=== PATIENT | male | born 1940 | race African-American/Black ===

== ENCOUNTER 2018-10-21 10:32 | Outpatient (CLI) | payer MEDICARE ==
--- NOTE | 2018-10-21 11:38 | RAD ---
PA AND LATERAL CHEST: Date: 10/21/18 HISTORY: COPD with acute lower respiratory infection. Dyspnea x2 days. FINDINGS: The heart size is within normal limits. Lungs show some chronic appearing change. There is suggestion there may be some minimally increased parenchymal density in the right upper lobe on the PA film, al though not definitely confirmed on the lateral view. The possibility of some minimal or early infiltr ate is not excluded. Follow-up chest film may be helpful. IMPRESSION: 1. Mild chronic appearing lung change. 2. Questionable minimally increased parenchymal markings in the right upper lobe. Follow-up chest fi lm to evaluate for some early right upper lobe infiltrative change is suggested. POS: [facility]
== END 2018-10-21 10:33 | disposition home or self-care (01) ==
LOC: BICRAD 10:32
PROVIDERS: ATTEND Family Medicine
DX: J44.0 Chronic obstructive pulmonary disease with (acute) lower respiratory infection (principal)
CPT/HCPCS: 36415; 71046; 80053; 85025

== ENCOUNTER 2019-05-16 11:17 | Inpatient (IN) | payer MEDICARE ==
--- NOTE | 2019-05-16 12:36 | RAD ---
LEFT FOOT THREE VIEWS: 05/16/2019 HISTORY: Great toe infection. COMPARISON: None. FINDINGS: The bones appear demineralized. No radiopaque foreign body or subcutaneous gas. There is enthesophyte formation at the origin of the plantar aponeurosis and insertion of the Achilles tendon. There is mild dorsal degenerative change of the mid foot. There is mild degenerative change involving the first metatarsophalangeal joint. No acute fracture or evidence of dislocation. There is probable soft tissue swelling involving the great toe distally. IMPRESSION: 1. No acute fracture or dislocation. 2. Mild soft tissue swelling involving the great toe which may represent cellulitis. If there is conc nba for osteomyelitis MRI is suggested. POS: ABDELRAHMAN
[2019-05-16 12:55] LABS: #Basophils 0.1 thou/uL (0.0-0.2); #Eosinphils 0.3 thou/uL (0.0-0.7); #Lymphocytes 4.5 thou/uL (1.20-3.40); #Monocytes 0.9 thou/uL (0.11-0.59); %Basophils 1.3 % (0.0-1.0); %Eosinophils 2.4 % (0.0-10.0); %Lymphocytes 41.9 % (21.0-51.0); %Neutrophils 46.4 % (42.0-75.0); Hemoglobin 11.7 g/dL (14.0-18.0); Mean Corpuscular Hemoglobin 32.4 pg (27.0-31.0); Mean Corpuscular Volume 95.1 fL (78.0-98.0); Mean Platelet Volume 8.1 fL (7.4-10.4); Platelet Count 243 thou/uL (130-400); RBC Distribution Width 12.1 % (11.5-14.5); Red Blood Cell (RBC) Count 3.61 mill/uL (4.70-6.10); White Blood Cell (WBC) Count 10.7 thou/uL (4.8-10.8)
[2019-05-16 13:18] LABS: ALT (SGPT) 17 U/L (8-55); AST (SGOT) 19 U/L (5-34); Alkaline Phosphatase 95 U/L (40-110); Anion Gap 13 mmol/L (10-20); BUN (Urea Nitrogen) 24 mg/dL (8.4-25.7); Bilirubin, Total 0.2 mg/dL (0.2-1.2); Calc. Creatinine Clearance 0 mL/min (70-130); Carbon Dioxide 20 mmol/L (23-31); Chloride 108 mmol/L (98-107); Estimated GFR-MDRD 24; Globulin 4.3 g/dL (2.4-3.5); Glucose 104 mg/dL (83-110); Protein, Total 8.3 g/dL (5.8-8.1); Sodium 137 mmol/L (136-145)
--- NOTE | 2019-05-16 16:33 | CON ---
DATE OF CONSULTATION: REASON FOR CONSULTATION: Elevated creatinine. HISTORY OF PRESENT ILLNESS: This is an 79-year-old gentleman with a history of hypertension, CKD, and a baseline creatinine of 2.6 in September of 2018, which increased to 3.1. The patient has had decreased p.o. intake. Past creatinine had been 2.3 in the past. The patient has recently been treated for cellulitis of the big toe and was started on cephalexin. PAST MEDICAL HISTORY: COPD, hypertension, CKD, and glaucoma. SOCIAL HISTORY: No alcohol or drug use. FAMILY HISTORY: Negative for ESRD. ALLERGIES: REVIEWED. MEDICATIONS: Home medications list reviewed. Hospital medications list reviewed. REVIEW OF SYSTEMS: Fifteen-point review of system was performed and negative, except for positives noted above. GENERAL: HEAD: NECK: No swelling or lumps. NOSE: No epistaxis or discharge. EYES: No diplopia or pain. RESPIRATORY: CARDIOVASCULAR: GASTROINTESTINAL: /ENVIRONMENTAL RESOURCE SPECIALIST: MUSCULOSKELETAL: No joint pain. NEUROPSYCHIATRIC SYSTEMS: No suicidal ideation. No ideation. SKIN: Denies any rash or ulcer. CONSTITUTIONAL: No fever or chills. PHYSICAL EXAMINATION: CONSTITUTIONAL: On exam, the patient is awake and alert. VITAL SIGNS: Afebrile, pulse 75, breathing 16, and blood pressure 130/70. GENERAL APPEARANCE AND MENTAL STATUS: Fair. HEAD/NECK: Normocephalic. Atraumatic. EYES: EOMI. No deformity. EARS: Clear. No ulcers. NOSE: Intact. No lesions. MOUTH: Clear. No discharge. THROAT: Clear. No exudate. LUNGS: Clear. No crackles. CARDIAC: S1, S2. No rub. ABDOMEN: Benign. Bowel sounds positive. GENITALIA/RECTUM: Recio absent. BACK/EXTREMITIES: Edema 0+. NEUROLOGICAL: Alert and motor intact. SKIN: LYMPHATICS: ASSESSMENT AND PLAN: 1. Ariadna with CKD due to ATN 2 Anemia, stable. 3. HTN stable 4. Medications based on glomerular filtration rate are appropriate. No indication for dialysis at this time. Job ID: [id number] [facility]
[2019-05-16 18:01] LABS: Lactic Acid 2.3 mmol/L (0.5-2.2)
[2019-05-16] MEDS ORDERED: hydrALAZINE 20 MG/ML VIAL SLOW IVP PRN (19:51)
[2019-05-16] MEDS ORDERED: Ondansetron ODT 4 MG TAB PO PRN (19:51)
[2019-05-16] MEDS ORDERED: Ondansetron PF 4 MG/2 ML Vial IVP PRN (19:51)
[2019-05-16 19:59] VITALS: BMI 16.7
[2019-05-16] MEDS ORDERED: Vancomycin HCl 1 GM in Premix Bag 1 BAG IVPB SCH (21:00)
[2019-05-16] MEDS: Famotidine 20 MG TAB PO SCH (21:13)
[2019-05-16] MEDS: cefTRIAXone\\ROCEPHIN 2 GM in Sodium Chloride 0.9% 100 ML IVPB SCH (21:13)
[2019-05-16] MEDS: Sodium Chloride 0.9% 1,000 ML IV SCH (21:13)
--- NOTE | 2019-05-17 00:57 | HP ---
PRIMARY CARE PROVIDER: Reji Scott MD CHIEF COMPLAINT: Generalized weakness and left great toe wound. HISTORY OF PRESENT ILLNESS: This is an 79-year-old male, who presents to [facility] Emergency Department and after evaluation by his primary care doctor showing evidence of worsening renal function above baseline chronic kidney disease. The patient apparently was being treated for a left great toe infection with antibiotic therapy on his second round of antibiotics when he was noted with increasing creatinine above baseline to a current level of 3.10. Baseline creatinine upon review of the electronic medical record in the 2 to 2.5 range. The patient also with decreased activity level, as well as 40 pounds weight loss according to the in one month. No specific documented fever, chills, fall or direct injury to the foot. The patient normally ambulates with a rolling walker at home with assistance. No specific history of recent travel, family members with similar symptoms or documented fever. In the emergency room, the patient underwent general evaluation including plain radiographs of the left great toe showing evidence of edema and soft tissue swelling without obvious signs of osteomyelitis. Metabolic screening also showed a creatinine of 3.10 with estimated GFR of 24. The patient received intravenous normal saline in the emergency room and was referred to the Hospitalist Service for further evaluation. PAST MEDICAL HISTORY: 1. Tobacco abuse. 2. Anorexia with weight loss. 3. Hypertension. 4. Chronic obstructive pulmonary disease. 5. Depression. PAST SURGICAL HISTORY: Laser eye treatment for glaucoma. CURRENT MEDICATIONS: 1. Atenolol 50 mg p.o. b.i.d. 2. Doxazosin 4 mg p.o. b.i.d. 3. Loratadine 10 mg p.o. daily. 4. Megace 400 mg/10 mL p.o. b.i.d. 5. Mirtazapine 15 mg p.o. at bedtime. 6. [place] 7.5/325 mg one tablet p.o. q.6 hours p.r.n. pain. 7. Flonase 1 spray in each naris daily p.r.n. 8. Dorzolamide 2% one drop to each eye b.i.d. 9. Latanoprost 0.005% one drop to each eye daily. 10. Symbicort 2 puffs inhaled b.i.d. ALLERGIES: NO KNOWN DRUG ALLERGIES. FAMILY HISTORY: Positive for hypertension. SOCIAL HISTORY: . Resides in the [facility] area. Smokes up to one pack daily for over 25 years. No alcohol or illicit drug use. Ambulates with a rolling walker. REVIEW OF SYSTEMS: CONSTITUTIONAL: Negative for weight loss or gain, ability to conduct usual activities. SKIN: Negative for rash, itching. EYES: Negative for double vision, pain. ENT/MOUTH: Negative for nose bleeding, neck stiffness, pain, tenderness. CARDIOVASCULAR: Negative for palpitations, dyspnea on exertion, orthopnea. RESPIRATORY: Negative for shortness of breath, wheezing, cough, hemoptysis, fever or night sweats. GASTROINTESTINAL: Negative for poor appetite, abdominal pain, heartburn, nausea , vomiting, constipation, or diarrhea. GENITOURINARY: Negative for urgency, frequency, dysuria, nocturia. MUSCULOSKELETAL: Negative for pain, swelling. NEUROLOGIC/PSYCHIATRIC: Negative for anxiety, depression. ALLERGY/IMMUNOLOGIC: Negative for skin rash, bleeding tendency. Otherwise negative except as stated per HPI. PHYSICAL EXAMINATION: VITAL SIGNS: On admission, blood pressure 122/57, pulse 90, respiratory rate 18 , temperature 98 degrees Fahrenheit, O2 saturation 100% on room air. GENERAL APPEARANCE: This is an 79-year-old male, frail, cachectic, answers questions appropriately, in no acute distress. HEENT: Pupils are equal, round, reactive to light and accommodation. Extraocular muscles are intact. No scleral icterus. No conjunctival injection. Nares patent. OP is clear. Oral mucosa dry appearing. NECK: Supple. No cervical adenopathy. No thyromegaly. No carotid bruits. No JVD appreciated. Cervical spine with full active and passive range of motion. No meningeal signs noted. CHEST: Diminished breath sounds in the bases bilaterally otherwise clear. CARDIOVASCULAR EXAM: S1, S2 without noted murmur, rub, or gallop. ABDOMEN: Flat, soft, nontender, and nondistended. Bowel sounds are positive in all 4 quadrants. There is no hepatosplenomegaly. No abdominal bruits. No rebound or guarding appreciated. EXTREMITIES: Warm and dry with fair turgor. No clubbing, cyanosis, or asymmetric edema appreciated. Left great toe with mild edema and erythema. Ingrown toenail noted of the left great toe. Pulses are diminished bilaterally at the dorsalis pedis, posterior tibial, and popliteal arteries. Capillary refill less than 2 seconds. Generalized muscle atrophy noted. NEUROLOGIC: Cranial nerves 2 through 12 are grossly intact. No focal or lateralizing signs appreciated. Not observed ambulatory during this exam. PERTINENT LABORATORY AND X-RAY FINDINGS: Sodium 137, potassium 4.0, chloride 108, CO2 of 20, BUN 24, creatinine 3.10, estimated GFR of 24, glucose 104, lactic acid level ranged between 2.3 to 3.0, calcium 10.0, AST 19, ALT of 17, alkaline phosphatase 95, albumin 4.0. CBC showed a white blood cell count of 10.7, hemoglobin 12, hematocrit 34, and platelet count 243 with normal differential. 3-views of the left foot dated 05/16/2019, showed no acute fracture or dislocation. Soft tissue swelling noted concerning for cellulitis. ASSESSMENT AND PLAN: 1. Acute kidney injury on chronic kidney disease stage 3. Admit to the medical floor. Avoid nephrotoxic agents and limit contrast exposure. Continue intravenous normal saline and monitor serial creatinine. Renal ultrasound pending. Consult Nephrology Service for further evaluation. Suspect multifactorial process including poor oral intake, dehydration and iatrogenic influence. 2. Lactic acidosis. Suspect secondary to acute kidney injury and #1. Continue IV fluids as outlined previously. Serial monitoring. Suspect component of the left great toe cellulitis. 3. Left great toe cellulitis. Continue vancomycin 1 g IV x1 now with additional Rocephin 2 g IV q.24 hours. Wound care consult for evaluation and monitoring. 4. Failure to thrive. Suspect multifactorial given the patient's advanced age and decreased oral intake. We will consult Dietary Services for evaluation. Consider Megace. Monitor oral intake. 5. Tobacco abuse. We will offer smoking cessation resource prior to discharge. 6. Hypertension. Resume home antihypertensive regimen and monitor clinical response. 7. Prophylaxis. SCDs while in bed. Pepcid 20 mg p.o. b.i.d. PT and OT evaluation for functional assessment. Case management consult for nursing home facility options. 8. Code status full. Surrogate medical decision maker is the patient's spouse. Job ID: [id number] MTDD
[2019-05-17 07:58] LABS: Hemoglobin 11.3 g/dL (14.0-18.0); Mean Corpuscular HGB CONC 33.2 g/dL (32.0-36.0); Mean Corpuscular Hemoglobin 32.3 pg (27.0-31.0); Mean Corpuscular Volume 97.4 fL (78.0-98.0); Mean Platelet Volume 7.9 fL (7.4-10.4); Platelet Count 238 thou/uL (130-400); RBC Distribution Width 12.2 % (11.5-14.5); Red Blood Cell (RBC) Count 3.48 mill/uL (4.70-6.10); White Blood Cell (WBC) Count 12.4 thou/uL (4.8-10.8)
--- NOTE | 2019-05-17 07:58 | ULT ---
US Renal Bilateral STANDARD: 05/16/2019 1:49 PM CLINICAL HISTORY: Renal failure. STUDY: Renal ultrasound COMPARISON: None. FINDINGS: Right kidney: Echogenicity: Normal. Masses/cysts: None. Hydronephrosis: None. Calcifications: None. Length: 7.5 cm Left kidney: Echogenicity: Normal. Masses/cysts: None. Hydronephrosis: None. Calcifications: None. Length: 7.4 cm Limited visualization of the urinary bladder is unremarkable. IMPRESSION: Unremarkable renal ultrasound
[2019-05-17] MEDS ORDERED: HYDROcodone/Acetaminophen 7.5/325 mg Tablet PO PRN ×2 (08:14→08:49)
[2019-05-17] MEDS ORDERED: Fluticasone Propionate Nasal Spray 16 gm Bottle NASAL PRN ×2 (08:14→08:48)
[2019-05-17 08:20] LABS: Phosphorus 2.6 mg/dL (2.3-4.7)
[2019-05-17 08:21] LABS: Anion Gap 11 mmol/L (10-20); Anion Gap 13 mmol/L (10-20); BUN (Urea Nitrogen) 22 mg/dL (8.4-25.7); Calc. Creatinine Clearance 14 mL/min (70-130); Calc. Creatinine Clearance 15 mL/min (70-130); Calcium 9.2 mg/dL (7.8-10.44); Carbon Dioxide 19 mmol/L (23-31); Carbon Dioxide 20 mmol/L (23-31); Chloride 110 mmol/L (98-107); Chloride 111 mmol/L (98-107); Estimated GFR-MDRD 29; Estimated GFR-MDRD 31; Glucose 86 mg/dL (83-110); Glucose 88 mg/dL (83-110); Magnesium 1.9 mg/dL (1.6-2.6); Potassium 4.1 mmol/L (3.5-5.1); Sodium 137 mmol/L (136-145); Sodium 139 mmol/L (136-145); Uric Acid 6.9 mg/dL (3.5-7.2)
[2019-05-17 08:22] LABS: #Basophils 0.1 thou/uL (0.0-0.2); #Eosinphils 0.3 thou/uL (0.0-0.7); #Lymphocytes 5.9 thou/uL (1.20-3.40); #Neutrophils 5.1 thou/uL (1.40-6.50); %Basophils 0.8 % (0.0-1.0); %Eosinophils 2.8 % (0.0-10.0); %Lymphocytes 47.4 % (21.0-51.0); %Monocytes 8.1 % (0.0-10.0); %Neutrophils 40.9 % (42.0-75.0); RBC Morphology Normal
--- NOTE | 2019-05-17 08:36 | PRG ---
DATE OF SERVICE: 05/17/2019 SUBJECTIVE: An 79-year-old gentleman being seen for acute kidney injury. The patient denied nausea, vomiting, or chest pain. OBJECTIVE: See above. The patient is awake and alert, in no acute distress. VITAL SIGNS: Pulse 74, breathing 16, blood pressure 169/67. GENERAL APPEARANCE AND MENTAL STATUS: Fair. HEAD/NECK: Normocephalic. Atraumatic. EYES: EOMI. No deformity. EARS: Clear. No ulcers. NOSE: Intact. No lesions. MOUTH: Clear. No discharge. THROAT: Clear. No exudate. LUNGS: Clear. No crackles. CARDIAC: S1, S2. No rub. ABDOMEN: Benign. Bowel sounds positive. GENITALIA/RECTUM: Recio absent. BACK/EXTREMITIES: Edema 0+. NEUROLOGICAL: Alert and motor intact. SKIN: LYMPHATICS: LABORATORY DATA: Reviewed. ASSESSMENT AND PLAN: 1. Chronic kidney disease stage 4 with acute kidney injury. Recheck labs. 2. Hypertension, stable. 3. Anemia, stable. Medication based on GFR appropriate. Job ID: [id number]
[2019-05-17] MEDS ORDERED: FLU VACC TS2019-20(65YR UP)/PF 180 MCG/0.5 ML SYRINGE IM ONE (09:00)
[2019-05-17] MEDS ORDERED: Atenolol 25 MG TAB PO SCH (09:00)
--- NOTE | 2019-05-17 09:03 | CON ---
DATE OF CONSULTATION: REASON FOR CONSULTATION: Nonhealing ulcer. HISTORY OF PRESENT ILLNESS: Mr. Mora is an 79-year-old gentleman, who I have seen and evaluated in the past. He recently presented with failure to thrive, increased chills in addition to a nonhealing ulcer to his toe. He was evaluated in the office last week. He did have an ultrasound performed earlier in the week and was found to have severe diffuse disease present of the SFA. His creatinine was also noted to be 3.0 with a creatinine clearance of 12. He has been subsequently admitted for further recommendations. PAST MEDICAL HISTORY: PVD, hypertension, COPD, peripheral neuropathy, continued tobacco abuse, anorexia, BPH, carotid bruit, glaucoma. HOME MEDICATIONS: Include, 1. Megestrol. 2. Atenolol. 3. Mirtazapine. 4. Doxazosin. 5. Tramadol. 6. Symbicort. 7. Flonase. 8. Timolol. 9. [place]. 10. Aspirin. 11. Loratadine. 12. Iron. PAST SURGICAL HISTORY: Ingrown toenail removal. FAMILY HISTORY: Negative for CAD. SOCIAL HISTORY: Positive for tobacco use. ALLERGIES: NONE. REVIEW OF SYSTEMS: Ten-point review of systems was reviewed as above, otherwise negative. PHYSICAL EXAMINATION: GENERAL: Patient is a pleasant male, who is in no acute distress. The patient appears their stated age. VITAL SIGNS: Blood pressure 116/67, pulse 74 temperature 98.4. NEUROLOGIC: The patient is alert and oriented x3 with no focal neurologic deficits. HEENT: Sclerae without icterus. Mouth has moist mucous membranes with normal pallor. NECK: No JVD. Carotid upstroke brisk. No bruits bilaterally. LUNGS: Clear to auscultation with unlabored respirations. BACK: No scoliosis or kyphosis. CARDIAC: Regular rate and rhythm with normal S1 and S2. No S3 or S4 noted. No significant rubs, murmurs, thrills, or gallops noted throughout the precordium. PMI is not displaced. There is no parasternal heave. ABDOMEN: Soft, nontender, nondistended. No peritoneal signs present. No hepatosplenomegaly. No abnormal striae. EXTREMITIES: Nonpalpable popliteal pulses bilaterally. Nonpalpable dorsalis pedis. posterior tibial pulses noted bilaterally. Left great toe appears cyanotic. Decreased capillary refill present. SKIN: No gross abnormalities. PERTINENT LABORATORY DATA: Hemoglobin 13.3. Followup creatinine of 2.59 with a creatinine clearance of 14. IMPRESSION: 1. Nonhealing ulcer. 2. Failure to thrive. 3. Chronic kidney disease. RECOMMENDATIONS: At this point, I did speak with Dr. Fontana about this complex case. Mr. Mora, with such a low creatinine clearance, is at high risk of needing a dialysis if angiography performed. He appeared to have severe disease present within the left SFA and popliteal region. Difficult to assess the infrapopliteal region due to a poor flow present. He likely has a long lesion present requiring significant amount of contrast potentially. I did call and left a message with Álvaro, his daughter to discuss the risks proceeding. Other option would be to continue with medical therapy and proceed with amputation if it did not heal. At this point, there are no good options. Again, we will discuss with family and discuss with Dr. Fontana further. Job ID: [id number]
[2019-05-17] MEDS: Megestrol Acetate 800 MG/20 ML UDCUP PO SCH ×2 (10:09→16:27)
[2019-05-17] MEDS: Atenolol 50 MG TAB PO SCH ×2 (10:11→20:02)
[2019-05-17] MEDS: DorzolamidE/Timolol 2%/0.5% Ophth Soln 10 ml Bottle EA EYE SCH ×2 (10:13→20:03)
[2019-05-17] MEDS: Doxazosin Mesylate 4 MG TAB PO SCH ×2 (10:32→20:02)
--- NOTE | 2019-05-17 14:07 | PDOC.HOSPP ---
- Subjective Encounter Date: 05/17/19 Encounter Time: 11:00 Subjective: Patient seen and examined. No new complaints. No overnight events - Objective Vital Signs & Weight: Vital Signs (12 hours) Temp Pulse Resp BP BP Pulse Ox 05/17/19 11:00 98.8 F 62 16 176/67 H 100 05/17/19 10:11 74 169/79 H 05/17/19 07:42 98.4 F 74 20 169/67 H 95 05/17/19 04:00 98.3 F 73 18 136/56 L 96 Weight Weight 97 lb 1.6 oz I&O: 05/16/19 05/17/19 05/18/19 06:59 06:59 06:59 Intake Total 846 Balance 846 Result Diagrams: 05/17/19 07:28 05/17/19 07:28 Hospitalist ROS - Review of Systems Constitutional: reports: weakness, malaise. denies: fever, chills, sweats, other ENT: denies: ear pain, ear discharge, nose pain, nose discharge, nose congestion , mouth pain, mouth swelling, throat pain, throat swelling, other Respiratory: denies: cough, dry, shortness of breath, hemoptysis, SOB with excertion, pleuritic pain, sputum, wheezing, other Gastrointestinal: denies: nausea, vomiting, abdominal pain, diarrhea, constipation, melena, hematochezia, other Genitourinary: denies: dysuria, frequency, incontinence, hematuria, retention, other Musculoskeletal: reports: foot pain. denies: neck pain, shoulder pain, arm pain , back pain, hand pain, leg pain, other Skin: denies: rash, lesions, bal, bruising, other - Medication Medications: Active Medications Generic Name Dose Route Start Last Admin Trade Name Freq PRN Reason Stop Dose Admin Atenolol 50 mg 05/17/19 09:00 05/17/19 10:11 Tenormin PO 50 mg BID RAMON Administration Dorzolamide/Timolol 1 drop 05/17/19 09:00 05/17/19 10:13 Cosopt 2-0.5% Ophth Soln EA EYE 1 drop BID RAMON Administration Doxazosin Mesylate 4 mg 05/17/19 09:00 05/17/19 10:32 Cardura PO 4 mg BID RAMON Administration Famotidine 20 mg 05/16/19 21:00 05/16/19 21:13 Pepcid PO 20 mg QPM RAMON Administration Sodium Chloride 1,000 mls @ 30 mls/hr 05/16/19 16:30 05/16/19 21:13 Normal Saline 0.9% IV 1,000 mls .Q24H RAMON Administration Ceftriaxone Sodium 2 gm/ 100 mls @ 200 mls/hr 05/16/19 20:00 05/16/19 21:13 Sodium Chloride IVPB 100 mls Q24HR RAMON Administration Megestrol Acetate 400 mg 05/17/19 08:00 05/17/19 10:09 Megace PO 400 mg BID-WM RAMON Administration Sodium Chloride 10 ml 05/16/19 21:00 05/17/19 10:34 Flush - Normal Saline IVF 10 ml Q12HR RAMON Administration - Exam General Appearance: NAD, ill appearing Eye: PERRL, anicteric sclera ENT: normocephalic atraumatic, no oropharyngeal lesions Neck: supple, symmetric, no JVD, no thyromegaly Heart: RRR, no murmur, no gallops, no rubs Respiratory: CTAB, no wheezes, no rales, no ronchi Gastrointestinal: soft, non-tender, non-distended, normal bowel sounds Extremities: no cyanosis, no clubbing Extremities - other findings: left great toe gangrene, muscle atrophy, no palpable pulse Skin: normal turgor, no lesions Neurological: cranial nerve grossly intact, no focal deficits Musculoskeletal: normal tone, normal strength Psychiatric: normal affect, normal behavior Hosp A/P (1) Lactic acidosis Code(s): E87.2 - ACIDOSIS Status: Acute (2) Acute worsening of stage 3 chronic kidney disease Code(s): N18.3 - CHRONIC KIDNEY DISEASE, STAGE 3 (MODERATE) Status: Acute (3) Gangrene of toe of left foot Code(s): I96 - GANGRENE, NOT ELSEWHERE CLASSIFIED Status: Acute (4) PAD (peripheral artery disease) Code(s): I73.9 - PERIPHERAL VASCULAR DISEASE, UNSPECIFIED Status: Chronic (5) Protein-calorie malnutrition, severe Code(s): E43 - UNSPECIFIED SEVERE PROTEIN-CALORIE MALNUTRITION Status: Chronic (6) Tobacco abuse Code(s): Z72.0 - TOBACCO USE Status: Chronic (7) Hypertension Code(s): I10 - ESSENTIAL (PRIMARY) HYPERTENSION Status: Acute Qualifiers: Hypertension type: essential hypertension Qualified Code(s): I10 - Essential (primary) hypertension (8) Anemia, normocytic normochromic Code(s): D64.9 - ANEMIA, UNSPECIFIED Status: Chronic - Plan old records reviewed/req, plan discussed w/ family, continue antibiotics 05/17/19 continue empiric antibiotics as ordered for now he can not have CTA to evaluate his PAD due to BRITTNEY continue IVF nephrology following level of amputation is difficult to decide as unable to do angiography, high risk for non healing due to poor nutrition as well prognosis guarded discussed with family bedside will repeat lab tomorrow
--- NOTE | 2019-05-17 15:13 | CON ---
DATE OF CONSULTATION: I spoke to Mr. Mora today and Ms. Rea, his daughter. I discussed the risks and benefits of proceeding with angiography versus continue medical therapy. With continue medical therapy risk being unsuccessful with need for amputation. With proceeding with angiography, the risk of failed intervention, amputation, and dialysis. Of course, there is the benefit of a successful procedure with limited contrast, although less likely given the findings on the arterial duplex. He was opted to therefore to proceed with just continue antibiotic therapy and not proceed with angiography. I would certainly agree with this direction. Otherwise, from a vascular standpoint, I have no further recommendations. If he has fever or continues to have progressive infection, would likely benefit from amputation. Please re-consult if needed. Job ID: [id number]
[2019-05-17] MEDS: Sodium Chloride 0.9% 1,000 ML IV SCH ×2 (16:27→19:59)
[2019-05-17] MEDS ORDERED: MEGESTROL ACETATE PO SCH (17:00)
[2019-05-17] MEDS: cefTRIAXone\\ROCEPHIN 2 GM in Sodium Chloride 0.9% 100 ML IVPB SCH (20:00)
[2019-05-17] MEDS: Mirtazapine 15 MG TAB PO SCH (20:02)
[2019-05-17] MEDS: Famotidine 20 MG TAB PO SCH (20:02)
[2019-05-17] MEDS: Latanoprost 0.005% Ophth Soln 2.5 ml Bottle EA EYE SCH (20:03)
[2019-05-18 08:14] LABS: #Basophils 0.1 thou/uL (0.0-0.2); #Eosinphils 0.2 thou/uL (0.0-0.7); #Lymphocytes 3.9 thou/uL (1.20-3.40); #Monocytes 0.7 thou/uL (0.11-0.59); #Neutrophils 5.4 thou/uL (1.40-6.50); %Basophils 0.8 % (0.0-1.0); %Eosinophils 2.1 % (0.0-10.0); %Lymphocytes 38.2 % (21.0-51.0); %Monocytes 6.3 % (0.0-10.0); %Neutrophils 52.7 % (42.0-75.0); Hemoglobin 10.2 g/dL (14.0-18.0); Mean Corpuscular HGB CONC 33.5 g/dL (32.0-36.0); Mean Corpuscular Hemoglobin 31.8 pg (27.0-31.0); Mean Platelet Volume 8.1 fL (7.4-10.4); Platelet Count 219 thou/uL (130-400); RBC Distribution Width 12.1 % (11.5-14.5); Red Blood Cell (RBC) Count 3.21 mill/uL (4.70-6.10); White Blood Cell (WBC) Count 10.3 thou/uL (4.8-10.8)
[2019-05-18] MEDS: Megestrol Acetate 800 MG/20 ML UDCUP PO SCH ×2 (08:28→16:31)
[2019-05-18] MEDS: Atenolol 50 MG TAB PO SCH ×2 (08:28→20:25)
[2019-05-18] MEDS: Doxazosin Mesylate 4 MG TAB PO SCH ×2 (08:28→20:25)
[2019-05-18] MEDS: DorzolamidE/Timolol 2%/0.5% Ophth Soln 10 ml Bottle EA EYE SCH ×2 (08:29→20:24)
[2019-05-18 08:31] LABS: Lactic Acid 2.1 mmol/L (0.5-2.2)
[2019-05-18 08:37] LABS: ALT (SGPT) 10 U/L (8-55); AST (SGOT) 13 U/L (5-34); Albumin 3.1 g/dL (3.4-4.8); Alkaline Phosphatase 71 U/L (40-110); Anion Gap 9 mmol/L (10-20); BUN (Urea Nitrogen) 20 mg/dL (8.4-25.7); Bilirubin, Total 0.3 mg/dL (0.2-1.2); Calc. Creatinine Clearance 17 mL/min (70-130); Calcium 8.8 mg/dL (7.8-10.44); Carbon Dioxide 21 mmol/L (23-31); Chloride 112 mmol/L (98-107); Estimated GFR-MDRD 35; Globulin 3.4 g/dL (2.4-3.5); Glucose 90 mg/dL (83-110); Phosphorus 3.1 mg/dL (2.3-4.7); Potassium 4.3 mmol/L (3.5-5.1); Protein, Total 6.5 g/dL (5.8-8.1); Sodium 138 mmol/L (136-145)
--- NOTE | 2019-05-18 10:49 | PDOC.HOSPP ---
- Subjective Encounter Date: 05/18/19 Encounter Time: 09:45 Subjective: Patient seen and examined. No new complaints. No overnight events - Objective Vital Signs & Weight: Vital Signs (12 hours) Temp Pulse Resp BP BP Pulse Ox 05/18/19 08:28 74 161/75 H 05/18/19 07:41 99.3 F 74 16 161/75 H 99 Weight Admit Weight 97 lb 1.6 oz Weight 97 lb 1.6 oz I&O: 05/17/19 05/18/19 05/19/19 06:59 06:59 06:59 Intake Total 846 2052 Output Total 775 Balance 846 7597 Result Diagrams: 05/18/19 07:58 05/18/19 07:58 Hospitalist ROS - Review of Systems Constitutional: denies: fever, chills, sweats, weakness, malaise, other Eyes: denies: pain, vision change, conjunctivae inflammation, eyelid inflammation, redness, other ENT: denies: ear pain, ear discharge, nose pain, nose discharge, nose congestion , mouth pain, mouth swelling, throat pain, throat swelling, other Respiratory: denies: cough, dry, shortness of breath, hemoptysis, SOB with excertion, pleuritic pain, sputum, wheezing, other Cardiovascular: denies: chest pain, palpitations, orthopnea, paroxysmal noc. dyspnea, edema, light headedness, other Gastrointestinal: denies: nausea, vomiting, abdominal pain, diarrhea, constipation, melena, hematochezia, other Genitourinary: denies: dysuria, frequency, incontinence, hematuria, retention, other Musculoskeletal: denies: neck pain, shoulder pain, arm pain, back pain, hand pain, leg pain, foot pain, other - Medication Medications: Active Medications Generic Name Dose Route Start Last Admin Trade Name Freq PRN Reason Stop Dose Admin Atenolol 50 mg 05/17/19 09:00 05/18/19 08:28 Tenormin PO 50 mg BID RAMON Administration Dorzolamide/Timolol 1 drop 05/17/19 09:00 05/18/19 08:29 Cosopt 2-0.5% Ophth Soln EA EYE 1 drop BID RAMON Administration Doxazosin Mesylate 4 mg 05/17/19 09:00 05/18/19 08:28 Cardura PO 4 mg BID RAMON Administration Famotidine 20 mg 05/16/19 21:00 05/17/19 20:02 Pepcid PO 20 mg QPM RAMON Administration Sodium Chloride 1,000 mls @ 30 mls/hr 05/16/19 16:30 05/17/19 19:59 Normal Saline 0.9% IV 1,000 mls .Q24H RAMON Administration Ceftriaxone Sodium 2 gm/ 100 mls @ 200 mls/hr 05/16/19 20:00 05/17/19 20:00 Sodium Chloride IVPB 100 mls Q24HR RAMON Administration Latanoprost 1 drop 05/17/19 21:00 05/17/19 20:03 Xalatan 0.005% Ophth Soln EA EYE 1 drop HS RAMON Administration Megestrol Acetate 400 mg 05/17/19 08:00 05/18/19 08:28 Megace PO 400 mg BID-WM RAMON Administration Mirtazapine 15 mg 05/17/19 21:00 05/17/19 20:02 Remeron PO 15 mg HS RAMON Administration Sodium Chloride 10 ml 05/16/19 21:00 05/18/19 08:29 Flush - Normal Saline IVF 10 ml Q12HR RAMON Administration - Exam General Appearance: NAD, ill appearing Eye: PERRL, anicteric sclera ENT: normocephalic atraumatic, no oropharyngeal lesions Neck: supple, symmetric, no JVD, no thyromegaly Heart: RRR, no murmur, no gallops, no rubs Respiratory: CTAB, no wheezes, no rales, no ronchi Gastrointestinal: soft, non-tender, non-distended, normal bowel sounds Extremities: no cyanosis, no clubbing Extremities - other findings: left great toe gangrene Skin: normal turgor, no lesions, no rashes Neurological: no focal deficits Musculoskeletal: normal tone, normal strength, generalized weakness, diffuse muscle atrophy Psychiatric: normal affect, normal behavior, A&O x 3 Hosp A/P (1) Lactic acidosis Code(s): E87.2 - ACIDOSIS Status: Resolved (2) Acute worsening of stage 3 chronic kidney disease Code(s): N18.3 - CHRONIC KIDNEY DISEASE, STAGE 3 (MODERATE) Status: Acute (3) Gangrene of toe of left foot Code(s): I96 - GANGRENE, NOT ELSEWHERE CLASSIFIED Status: Acute (4) PAD (peripheral artery disease) Code(s): I73.9 - PERIPHERAL VASCULAR DISEASE, UNSPECIFIED Status: Chronic (5) Protein-calorie malnutrition, severe Code(s): E43 - UNSPECIFIED SEVERE PROTEIN-CALORIE MALNUTRITION Status: Chronic (6) Tobacco abuse Code(s): Z72.0 - TOBACCO USE Status: Chronic (7) Hypertension Code(s): I10 - ESSENTIAL (PRIMARY) HYPERTENSION Status: Acute Qualifiers: Hypertension type: essential hypertension Qualified Code(s): I10 - Essential (primary) hypertension (8) Anemia, normocytic normochromic Code(s): D64.9 - ANEMIA, UNSPECIFIED Status: Chronic - Plan old records reviewed/req, continue antibiotics 05/17/19 continue empiric antibiotics as ordered for now he can not have CTA to evaluate his PAD due to BRITTNEY continue IVF nephrology following level of amputation is difficult to decide as unable to do angiography, high risk for non healing due to poor nutrition as well prognosis guarded discussed with family bedside will repeat lab tomorrow 05/18/19 continue iv antibiotic for now renal function is little better continue ivf pt is not a candidate for angiography will monitor counselled to avoid smoking nutritional support
--- NOTE | 2019-05-18 11:39 | PRG ---
DATE OF SERVICE: 05/18/2019 SUBJECTIVE: The patient is an 79-year-old gentleman, being seen for acute kidney injury. The patient denied nausea, vomiting, or chest pain. OBJECTIVE: See above. Awake, alert, in no acute distress. VITAL SIGNS: Pulse 77, breathing 16, blood pressure 138/79. GENERAL APPEARANCE AND MENTAL STATUS: Fair. HEAD/NECK: Normocephalic. Atraumatic. EYES: EOMI. No deformity. EARS: Clear. No ulcers. NOSE: Intact. No lesions. MOUTH: Clear. No discharge. THROAT: Clear. No exudate. LUNGS: Clear. No crackles. CARDIAC: S1, S2. No rub. ABDOMEN: Benign. Bowel sounds positive. GENITALIA/RECTUM: Recio absent. BACK/EXTREMITIES: Edema 0+. NEUROLOGICAL: Alert and motor intact. SKIN: LYMPHATICS: LABORATORY DATA: Hemoglobin 10.2. Creatinine 2.1. ASSESSMENT AND PLAN: 1. Acute kidney injury, improved. 2. Hypertension, stable. 3. Anemia, stable. 4. Chronic kidney disease stage 3, stable. 5. Acute tubular necrosis, improved. No indication for dialysis. Job ID: [id number]
[2019-05-18] MEDS: Famotidine 20 MG TAB PO SCH (20:24)
[2019-05-18] MEDS: Latanoprost 0.005% Ophth Soln 2.5 ml Bottle EA EYE SCH (20:25)
[2019-05-18] MEDS: Mirtazapine 15 MG TAB PO SCH (20:25)
[2019-05-18] MEDS: cefTRIAXone\\ROCEPHIN 2 GM in Sodium Chloride 0.9% 100 ML IVPB SCH (20:25)
[2019-05-19] MEDS: Megestrol Acetate 800 MG/20 ML UDCUP PO SCH ×2 (08:29→18:18)
[2019-05-19] MEDS: Atenolol 50 MG TAB PO SCH ×2 (08:30→20:28)
[2019-05-19] MEDS: DorzolamidE/Timolol 2%/0.5% Ophth Soln 10 ml Bottle EA EYE SCH ×2 (08:31→20:27)
[2019-05-19] MEDS: Doxazosin Mesylate 4 MG TAB PO SCH ×2 (08:31→20:28)
[2019-05-19] MEDS: Sodium Chloride 0.9% 1,000 ML IV SCH (08:33)
[2019-05-19 10:59] LABS: Anion Gap 12 mmol/L (10-20); BUN (Urea Nitrogen) 24 mg/dL (8.4-25.7); Calc. Creatinine Clearance 15 mL/min (70-130); Carbon Dioxide 17 mmol/L (23-31); Chloride 113 mmol/L (98-107); Estimated GFR-MDRD 32; Glucose 68 mg/dL (83-110); Potassium 4.4 mmol/L (3.5-5.1); Sodium 138 mmol/L (136-145)
--- NOTE | 2019-05-19 11:53 | PDOC.HOSPP ---
- Subjective Encounter Date: 05/19/19 Encounter Time: 10:25 Subjective: Patient seen and examined. No new complaints. No overnight events - Objective Vital Signs & Weight: Vital Signs (12 hours) Temp Pulse Resp BP BP Pulse Ox 05/19/19 08:30 66 158/77 H 05/19/19 07:19 98.3 F 66 12 158/77 H 100 05/19/19 04:00 16 Weight Admit Weight 97 lb 1.6 oz Weight 97 lb 1.6 oz I&O: 05/18/19 05/19/19 05/20/19 06:59 06:59 06:59 Intake Total 2 2260 Output Total 775 550 Balance 1277 1710 Result Diagrams: 05/18/19 07:58 05/19/19 10:35 Hospitalist ROS - Review of Systems Eyes: denies: pain, vision change, conjunctivae inflammation, eyelid inflammation, redness, other ENT: denies: ear pain, ear discharge, nose pain, nose discharge, nose congestion , mouth pain, mouth swelling, throat pain, throat swelling, other Respiratory: denies: cough, dry, shortness of breath, hemoptysis, SOB with excertion, pleuritic pain, sputum, wheezing, other Cardiovascular: denies: chest pain, palpitations, orthopnea, paroxysmal noc. dyspnea, edema, light headedness, other Gastrointestinal: denies: nausea, vomiting, abdominal pain, diarrhea, constipation, melena, hematochezia, other Genitourinary: denies: dysuria, frequency, incontinence, hematuria, retention, other Musculoskeletal: denies: neck pain, shoulder pain, arm pain, back pain, hand pain, leg pain, foot pain, other - Medication Medications: Active Medications Generic Name Dose Route Start Last Admin Trade Name Freq PRN Reason Stop Dose Admin Atenolol 50 mg 05/17/19 09:00 05/19/19 08:30 Tenormin PO 50 mg BID RAMON Administration Dorzolamide/Timolol 1 drop 05/17/19 09:00 05/19/19 08:31 Cosopt 2-0.5% Ophth Soln EA EYE 1 drop BID RAMON Administration Doxazosin Mesylate 4 mg 05/17/19 09:00 05/19/19 08:31 Cardura PO 4 mg BID RAMON Administration Famotidine 20 mg 05/16/19 21:00 05/18/19 20:24 Pepcid PO 20 mg QPM RAMON Administration Sodium Chloride 1,000 mls @ 30 mls/hr 05/16/19 16:30 05/19/19 08:33 Normal Saline 0.9% IV 1,000 mls .Q24H RAMON Administration Ceftriaxone Sodium 2 gm/ 100 mls @ 200 mls/hr 05/16/19 20:00 05/18/19 20:25 Sodium Chloride IVPB 100 mls Q24HR RAMON Administration Latanoprost 1 drop 05/17/19 21:00 05/18/19 20:25 Xalatan 0.005% Ophth Soln EA EYE 1 drop HS RAMON Administration Megestrol Acetate 400 mg 05/17/19 08:00 05/19/19 08:29 Megace PO 400 mg BID-WM RAMON Administration Mirtazapine 15 mg 05/17/19 21:00 05/18/19 20:25 Remeron PO 15 mg HS RAMON Administration Sodium Chloride 10 ml 05/16/19 21:00 05/19/19 08:32 Flush - Normal Saline IVF Not Given Q12HR RAMON - Exam General Appearance: NAD, ill appearing Eye: PERRL, anicteric sclera ENT: normocephalic atraumatic, no oropharyngeal lesions Neck: supple, symmetric, no JVD, no thyromegaly Heart: RRR, no murmur, no gallops, no rubs Respiratory: CTAB, no wheezes, no rales, no ronchi Gastrointestinal: soft, non-tender, non-distended Extremities: no cyanosis, no clubbing Extremities - other findings: left great toe gangrene Neurological: no focal deficits Musculoskeletal: generalized weakness, diffuse muscle atrophy Psychiatric: normal affect, normal behavior Hosp A/P (1) Lactic acidosis Code(s): E87.2 - ACIDOSIS Status: Resolved (2) Acute worsening of stage 3 chronic kidney disease Code(s): N18.3 - CHRONIC KIDNEY DISEASE, STAGE 3 (MODERATE) Status: Acute (3) Gangrene of toe of left foot Code(s): I96 - GANGRENE, NOT ELSEWHERE CLASSIFIED Status: Acute (4) PAD (peripheral artery disease) Code(s): I73.9 - PERIPHERAL VASCULAR DISEASE, UNSPECIFIED Status: Chronic (5) Protein-calorie malnutrition, severe Code(s): E43 - UNSPECIFIED SEVERE PROTEIN-CALORIE MALNUTRITION Status: Chronic (6) Tobacco abuse Code(s): Z72.0 - TOBACCO USE Status: Chronic (7) Hypertension Code(s): I10 - ESSENTIAL (PRIMARY) HYPERTENSION Status: Acute Qualifiers: Hypertension type: essential hypertension Qualified Code(s): I10 - Essential (primary) hypertension (8) Anemia, normocytic normochromic Code(s): D64.9 - ANEMIA, UNSPECIFIED Status: Chronic - Plan old records reviewed/req, continue antibiotics 05/17/19 continue empiric antibiotics as ordered for now he can not have CTA to evaluate his PAD due to BRITTNEY continue IVF nephrology following level of amputation is difficult to decide as unable to do angiography, high risk for non healing due to poor nutrition as well prognosis guarded discussed with family bedside will repeat lab tomorrow 05/18/19 continue iv antibiotic for now renal function is little better continue ivf pt is not a candidate for angiography will monitor counselled to avoid smoking nutritional support 05/19/19 continue current antibiotic start PT/OT discharge planning renal function fluctuating, likely chronic
--- NOTE | 2019-05-19 15:04 | PRG ---
DATE OF SERVICE: 05/19/2019 SUBJECTIVE: This is an 79-year-old male, being seen for acute kidney injury. The patient denied any nausea, vomiting, or chest pain. OBJECTIVE: CONSTITUTIONAL: On exam, the patient is awake and alert. VITAL SIGNS: Afebrile, pulse 79, breathing 16, and blood pressure . GENERAL APPEARANCE AND MENTAL STATUS: Fair. HEAD/NECK: Normocephalic. Atraumatic. EYES: EOMI. No deformity. EARS: Clear. No ulcers. NOSE: Intact. No lesions. MOUTH: Clear. No discharge. THROAT: Clear. No exudate. LUNGS: Clear. No crackles. CARDIAC: S1, S2. No rub. ABDOMEN: Benign. Bowel sounds positive. GENITALIA/RECTUM: Recio absent. BACK/EXTREMITIES: Edema 0+. NEUROLOGICAL: Alert and motor intact. SKIN: LYMPHATICS: LABORATORY DATA: Labs show hemoglobin 10.2. Creatinine 2.4. ASSESSMENT AND PLAN: 1. Acute kidney injury chronic kidney disease, stage 3 due to acute tubular necrosis and infection. 2. Hypertension, stable. 3. Anemia, stable. Medication based on GFR appropriate. Job ID: [id number]
[2019-05-19] MEDS: cefTRIAXone\\ROCEPHIN 2 GM in Sodium Chloride 0.9% 100 ML IVPB SCH (20:27)
[2019-05-19] MEDS: Latanoprost 0.005% Ophth Soln 2.5 ml Bottle EA EYE SCH (20:28)
[2019-05-19] MEDS: Famotidine 20 MG TAB PO SCH (20:29)
[2019-05-19] MEDS: Mirtazapine 15 MG TAB PO SCH (20:29)
[2019-05-20] MEDS: Doxazosin Mesylate 4 MG TAB PO SCH ×2 (08:41→20:30)
[2019-05-20] MEDS: Atenolol 50 MG TAB PO SCH ×2 (08:42→20:30)
[2019-05-20] MEDS: Megestrol Acetate 800 MG/20 ML UDCUP PO SCH ×2 (08:44→17:09)
[2019-05-20] MEDS: DorzolamidE/Timolol 2%/0.5% Ophth Soln 10 ml Bottle EA EYE SCH ×2 (08:45→20:26)
--- NOTE | 2019-05-20 10:07 | PDOC.HOSPP ---
- Subjective Encounter Date: 05/20/19 Encounter Time: 08:45 Subjective: Patient seen and examined. No new complaints. No overnight events - Objective Vital Signs & Weight: Vital Signs (12 hours) Temp Pulse Resp BP BP BP Pulse Ox 05/20/19 08:42 87 163/51 H 05/20/19 08:30 98.1 F 87 18 163/71 H 100 05/20/19 08:00 98.1 F 87 20 92/63 100 05/20/19 04:00 16 Weight Admit Weight 97 lb 1.6 oz Weight 97 lb 1.6 oz I&O: 05/19/19 05/20/19 05/21/19 06:59 06:59 06:59 Intake Total 2260 1140 Output Total 550 875 Balance 1710 265 Result Diagrams: 05/18/19 07:58 05/19/19 10:35 Hospitalist ROS - Review of Systems Constitutional: denies: fever, chills, sweats, weakness, malaise, other Eyes: denies: pain, vision change, conjunctivae inflammation, eyelid inflammation, redness, other ENT: denies: ear pain, ear discharge, nose pain, nose discharge, nose congestion , mouth pain, mouth swelling, throat pain, throat swelling, other Respiratory: denies: cough, dry, shortness of breath, hemoptysis, SOB with excertion, pleuritic pain, sputum, wheezing, other Cardiovascular: denies: chest pain, palpitations, orthopnea, paroxysmal noc. dyspnea, edema, light headedness, other Gastrointestinal: denies: nausea, vomiting, abdominal pain, diarrhea, constipation, melena, hematochezia, other Genitourinary: denies: dysuria, frequency, incontinence, hematuria, retention, other Musculoskeletal: denies: neck pain, shoulder pain, arm pain, back pain, hand pain, leg pain, foot pain, other Skin: denies: rash, lesions, bal, bruising, other - Medication Medications: Active Medications Generic Name Dose Route Start Last Admin Trade Name Freq PRN Reason Stop Dose Admin Atenolol 50 mg 05/17/19 09:00 05/20/19 08:42 Tenormin PO 50 mg BID RAMON Administration Dorzolamide/Timolol 1 drop 05/17/19 09:00 05/20/19 08:45 Cosopt 2-0.5% Ophth Soln EA EYE 1 drop BID RAMON Administration Doxazosin Mesylate 4 mg 05/17/19 09:00 05/20/19 08:41 Cardura PO 4 mg BID ARMON Administration Famotidine 20 mg 05/16/19 21:00 05/19/19 20:29 Pepcid PO 20 mg QPM RAMON Administration Sodium Chloride 1,000 mls @ 30 mls/hr 05/16/19 16:30 05/19/19 08:33 Normal Saline 0.9% IV 1,000 mls .Q24H RAMON Administration Ceftriaxone Sodium 2 gm/ 100 mls @ 200 mls/hr 05/16/19 20:00 05/19/19 20:27 Sodium Chloride IVPB 100 mls Q24HR RAMON Administration Latanoprost 1 drop 05/17/19 21:00 05/19/19 20:28 Xalatan 0.005% Ophth Soln EA EYE 1 drop HS RAMON Administration Megestrol Acetate 400 mg 05/17/19 08:00 05/20/19 08:44 Megace PO 400 mg BID-WM RAMON Administration Mirtazapine 15 mg 05/17/19 21:00 05/19/19 20:29 Remeron PO 15 mg HS RAMON Administration Sodium Chloride 10 ml 05/16/19 21:00 05/20/19 08:45 Flush - Normal Saline IVF Not Given Q12HR RAMON - Exam General Appearance: NAD, awake alert Eye: PERRL, anicteric sclera ENT: normocephalic atraumatic, no oropharyngeal lesions Neck: supple, symmetric, no JVD, no thyromegaly Heart: RRR, no murmur, no gallops, no rubs Respiratory: CTAB, no wheezes, no rales, no ronchi Gastrointestinal: soft, non-tender, non-distended Extremities: no cyanosis, no clubbing Skin: normal turgor, no lesions Neurological: cranial nerve grossly intact, no focal deficits Musculoskeletal: normal tone, normal strength Psychiatric: normal affect, normal behavior Hosp A/P (1) Lactic acidosis Code(s): E87.2 - ACIDOSIS Status: Resolved (2) Acute worsening of stage 3 chronic kidney disease Code(s): N18.3 - CHRONIC KIDNEY DISEASE, STAGE 3 (MODERATE) Status: Acute (3) Gangrene of toe of left foot Code(s): I96 - GANGRENE, NOT ELSEWHERE CLASSIFIED Status: Acute (4) PAD (peripheral artery disease) Code(s): I73.9 - PERIPHERAL VASCULAR DISEASE, UNSPECIFIED Status: Chronic (5) Protein-calorie malnutrition, severe Code(s): E43 - UNSPECIFIED SEVERE PROTEIN-CALORIE MALNUTRITION Status: Chronic (6) Tobacco abuse Code(s): Z72.0 - TOBACCO USE Status: Chronic (7) Hypertension Code(s): I10 - ESSENTIAL (PRIMARY) HYPERTENSION Status: Acute Qualifiers: Hypertension type: essential hypertension Qualified Code(s): I10 - Essential (primary) hypertension (8) Anemia, normocytic normochromic Code(s): D64.9 - ANEMIA, UNSPECIFIED Status: Chronic - Plan old records reviewed/req, continue antibiotics 05/17/19 continue empiric antibiotics as ordered for now he can not have CTA to evaluate his PAD due to BRITTNEY continue IVF nephrology following level of amputation is difficult to decide as unable to do angiography, high risk for non healing due to poor nutrition as well prognosis guarded discussed with family bedside will repeat lab tomorrow 05/18/19 continue iv antibiotic for now renal function is little better continue ivf pt is not a candidate for angiography will monitor counselled to avoid smoking nutritional support 05/19/19 continue current antibiotic start PT/OT discharge planning renal function fluctuating, likely chronic 05/20/19 continue current antibiotics discharge planning to snu medication reviewed as above symptomatic treatment nutritional support
[2019-05-20 11:49] LABS: Anion Gap 11 mmol/L (10-20); BUN (Urea Nitrogen) 26 mg/dL (8.4-25.7); Calc. Creatinine Clearance 17 mL/min (70-130); Calcium 8.9 mg/dL (7.8-10.44); Carbon Dioxide 20 mmol/L (23-31); Chloride 114 mmol/L (98-107); Estimated GFR-MDRD 35; Glucose 96 mg/dL (83-110); Potassium 4.2 mmol/L (3.5-5.1); Sodium 141 mmol/L (136-145)
--- NOTE | 2019-05-20 12:05 | PRG ---
DATE OF SERVICE: 05/20/2019 SUBJECTIVE: This is an 79-year-old male being seen for acute kidney injury. The patient denied nausea, vomiting, or chest pain. OBJECTIVE: CONSTITUTIONAL: The patient is awake and alert. VITAL SIGNS: Pulse 62, breathing 16, blood pressure 134/71. GENERAL APPEARANCE AND MENTAL STATUS: Fair. HEAD/NECK: Normocephalic. Atraumatic. EYES: EOMI. No deformity. EARS: Clear. No ulcers. NOSE: Intact. No lesions. MOUTH: Clear. No discharge. THROAT: Clear. No exudate. LUNGS: Clear. No crackles. CARDIAC: S1, S2. No rub. ABDOMEN: Benign. Bowel sounds positive. GENITALIA/RECTUM: Recio absent. BACK/EXTREMITIES: Edema 0+. NEUROLOGICAL: Alert and motor intact. SKIN: LYMPHATICS: LABORATORY DATA: Hemoglobin 10.2, creatinine 2.4. ASSESSMENT AND PLAN: 1. Acute kidney injury with chronic kidney disease. We will recheck labs today. 2. Hypertension, stable. 3. Anemia, stable. 4. No indication for dialysis. Overall prognosis is poor. Job ID: [id number]
[2019-05-20] MEDS: Sodium Chloride 0.9% 1,000 ML IV SCH (18:39)
[2019-05-20] MEDS: cefTRIAXone\\ROCEPHIN 2 GM in Sodium Chloride 0.9% 100 ML IVPB SCH (20:24)
[2019-05-20] MEDS: Famotidine 20 MG TAB PO SCH (20:31)
[2019-05-20] MEDS: Latanoprost 0.005% Ophth Soln 2.5 ml Bottle EA EYE SCH (20:31)
[2019-05-20] MEDS: Mirtazapine 15 MG TAB PO SCH (20:31)
[2019-05-21] MEDS: Megestrol Acetate 800 MG/20 ML UDCUP PO SCH ×2 (08:08→17:27)
[2019-05-21] MEDS: Doxazosin Mesylate 4 MG TAB PO SCH ×2 (08:09→20:29)
[2019-05-21] MEDS: Atenolol 50 MG TAB PO SCH ×2 (08:09→20:28)
[2019-05-21] MEDS: DorzolamidE/Timolol 2%/0.5% Ophth Soln 10 ml Bottle EA EYE SCH ×2 (08:09→20:29)
--- NOTE | 2019-05-21 12:08 | PRG ---
DATE OF SERVICE: 05/21/2019 SUBJECTIVE: This is an 79-year-old male being seen for acute kidney injury. The patient denied nausea, vomiting, or chest pain. OBJECTIVE: CONSTITUTIONAL: The patient is awake and alert. VITAL SIGNS: Pulse 75, breathing 16, blood pressure was 145/76. GENERAL APPEARANCE AND MENTAL STATUS: Fair. HEAD/NECK: Normocephalic. Atraumatic. EYES: EOMI. No deformity. EARS: Clear. No ulcers. NOSE: Intact. No lesions. MOUTH: Clear. No discharge. THROAT: Clear. No exudate. LUNGS: Clear. No crackles. CARDIAC: S1, S2. No rub. ABDOMEN: Benign. Bowel sounds positive. GENITALIA/RECTUM: Recio absent. BACK/EXTREMITIES: Edema 0+. NEUROLOGICAL: Alert and motor intact. SKIN: LYMPHATICS: LABORATORY DATA: Reviewed. ASSESSMENT AND PLAN: 1. Chronic kidney disease stage 3, stable. 2. Hypertension, stable. 3. Acute kidney injury, improving. No indication for dialysis. I will sign off on this patient. Please reconsult as needed. Job ID: [id number]
--- NOTE | 2019-05-21 12:41 | PDOC.HOSPP ---
- Subjective Encounter Date: 05/21/19 Encounter Time: 09:30 Subjective: Patient seen and examined. No new complaints. No overnight events - Objective Vital Signs & Weight: Vital Signs (12 hours) Temp Pulse Resp BP BP BP Pulse Ox 05/21/19 11:52 98.9 F 66 20 145/76 H 100 05/21/19 08:09 69 170/75 H 100 05/21/19 08:00 97.7 F 69 20 170/75 H 100 Weight Admit Weight 97 lb 1.6 oz Weight 97 lb 1.6 oz I&O: 05/20/19 05/21/19 05/22/19 06:59 06:59 06:59 Intake Total 1140 1336 Output Total 875 750 Balance 265 586 Result Diagrams: 05/18/19 07:58 05/20/19 11:22 Hospitalist ROS - Review of Systems Eyes: denies: pain, vision change, conjunctivae inflammation, eyelid inflammation, redness, other ENT: denies: ear pain, ear discharge, nose pain, nose discharge, nose congestion , mouth pain, mouth swelling, throat pain, throat swelling, other Respiratory: denies: cough, dry, shortness of breath, hemoptysis, SOB with excertion, pleuritic pain, sputum, wheezing, other Cardiovascular: denies: chest pain, palpitations, orthopnea, paroxysmal noc. dyspnea, edema, light headedness, other Gastrointestinal: denies: nausea, vomiting, abdominal pain, diarrhea, constipation, melena, hematochezia, other Genitourinary: denies: dysuria, frequency, incontinence, hematuria, retention, other Musculoskeletal: denies: neck pain, shoulder pain, arm pain, back pain, hand pain, leg pain, foot pain, other - Medication Medications: Active Medications Generic Name Dose Route Start Last Admin Trade Name Freq PRN Reason Stop Dose Admin Atenolol 50 mg 05/17/19 09:00 05/21/19 08:09 Tenormin PO 50 mg BID RAMON Administration Dorzolamide/Timolol 1 drop 05/17/19 09:00 05/21/19 08:09 Cosopt 2-0.5% Ophth Soln EA EYE 1 drop BID RAMON Administration Doxazosin Mesylate 4 mg 05/17/19 09:00 05/21/19 08:09 Cardura PO 4 mg BID RAMON Administration Famotidine 20 mg 05/16/19 21:00 05/20/19 20:31 Pepcid PO 20 mg QPM RAMON Administration Sodium Chloride 1,000 mls @ 30 mls/hr 05/16/19 16:30 05/20/19 18:39 Normal Saline 0.9% IV 1,000 mls .Q24H RAMON Administration Ceftriaxone Sodium 2 gm/ 100 mls @ 200 mls/hr 05/16/19 20:00 05/20/19 20:24 Sodium Chloride IVPB 100 mls Q24HR RAMON Administration Latanoprost 1 drop 05/17/19 21:00 05/20/19 20:31 Xalatan 0.005% Ophth Soln EA EYE 1 drop HS RAMON Administration Megestrol Acetate 400 mg 05/17/19 08:00 05/21/19 08:08 Megace PO 400 mg BID-WM RAMON Administration Mirtazapine 15 mg 05/17/19 21:00 05/20/19 20:31 Remeron PO 15 mg HS RAMON Administration Sodium Chloride 10 ml 05/16/19 21:00 05/21/19 08:12 Flush - Normal Saline IVF Not Given Q12HR RAMON - Exam General Appearance: NAD, awake alert Eye: PERRL, anicteric sclera ENT: normocephalic atraumatic, no oropharyngeal lesions Neck: supple, symmetric, no JVD, no thyromegaly Heart: RRR, no murmur, no gallops, no rubs Respiratory: CTAB, no wheezes, no rales, no ronchi Gastrointestinal: soft, non-tender, non-distended, normal bowel sounds Extremities: no cyanosis, no clubbing Skin: normal turgor, no lesions Neurological: no focal deficits Musculoskeletal: normal tone, normal strength Psychiatric: normal affect, normal behavior Hosp A/P (1) Lactic acidosis Code(s): E87.2 - ACIDOSIS Status: Resolved (2) Acute worsening of stage 3 chronic kidney disease Code(s): N18.3 - CHRONIC KIDNEY DISEASE, STAGE 3 (MODERATE) Status: Acute (3) Gangrene of toe of left foot Code(s): I96 - GANGRENE, NOT ELSEWHERE CLASSIFIED Status: Acute (4) PAD (peripheral artery disease) Code(s): I73.9 - PERIPHERAL VASCULAR DISEASE, UNSPECIFIED Status: Chronic (5) Protein-calorie malnutrition, severe Code(s): E43 - UNSPECIFIED SEVERE PROTEIN-CALORIE MALNUTRITION Status: Chronic (6) Tobacco abuse Code(s): Z72.0 - TOBACCO USE Status: Chronic (7) Hypertension Code(s): I10 - ESSENTIAL (PRIMARY) HYPERTENSION Status: Acute Qualifiers: Hypertension type: essential hypertension Qualified Code(s): I10 - Essential (primary) hypertension (8) Anemia, normocytic normochromic Code(s): D64.9 - ANEMIA, UNSPECIFIED Status: Chronic - Plan old records reviewed/req, plan discussed w/ family, continue antibiotics, PT/OT , [employer] 05/17/19 continue empiric antibiotics as ordered for now he can not have CTA to evaluate his PAD due to BRITTNEY continue IVF nephrology following level of amputation is difficult to decide as unable to do angiography, high risk for non healing due to poor nutrition as well prognosis guarded discussed with family bedside will repeat lab tomorrow 05/18/19 continue iv antibiotic for now renal function is little better continue ivf pt is not a candidate for angiography will monitor counselled to avoid smoking nutritional support 05/19/19 continue current antibiotic start PT/OT discharge planning renal function fluctuating, likely chronic 05/20/19 continue current antibiotics discharge planning to snu medication reviewed as above symptomatic treatment nutritional support 05/21/19 I spoke with daughter, she does not want to take any risk with kidney, so we can not do any angiography or revascularization amputation of toe is also not good option as wound may not heal without vascularization possible autoamputation with time no active infection at this time family to decide about home vs snu on discharge, may be tomorrow high risk for readmission will repeat labs tomorrow
--- NOTE | 2019-05-21 15:48 | CT ---
CT BRAIN WITHOUT CONTRAST: Date: 05/21/19 HISTORY: Fall, headache, trauma to head against a wall. FINDINGS: There are changes of cortical atrophy and chronic small vessel ischemic disease. The ventricular size is appropriate and the basilar cisterns are patent. 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 No evidence of acute infarct, hemorrhage, midline shift, or abnormal extra-axia l fluid collections are seen. The bony calvarium is intact. The visualized paranasal sinuses and mast oid air cells are well aerated. IMPRESSION: No CT evidence of acute intracranial process. POS: [facility]
[2019-05-21] MEDS: Acetaminophen 500 MG TAB PO PRN (17:28)
[2019-05-21] MEDS: Famotidine 20 MG TAB PO SCH (20:29)
[2019-05-21] MEDS: Mirtazapine 15 MG TAB PO SCH (20:29)
[2019-05-21] MEDS: Latanoprost 0.005% Ophth Soln 2.5 ml Bottle EA EYE SCH (20:29)
[2019-05-21] MEDS: cefTRIAXone\\ROCEPHIN 2 GM in Sodium Chloride 0.9% 100 ML IVPB SCH (20:29)
[2019-05-21] MEDS: Sodium Chloride 0.9% 1,000 ML IV SCH (20:30)
[2019-05-22 06:26] LABS: #Basophils 0.1 thou/uL (0.0-0.2); #Eosinphils 0.1 thou/uL (0.0-0.7); #Lymphocytes 3.9 thou/uL (1.20-3.40); #Monocytes 0.8 thou/uL (0.11-0.59); #Neutrophils 6.6 thou/uL (1.40-6.50); %Basophils 0.5 % (0.0-1.0); %Lymphocytes 33.5 % (21.0-51.0); %Monocytes 7.2 % (0.0-10.0); %Neutrophils 57.8 % (42.0-75.0); Hemoglobin 10.6 g/dL (14.0-18.0); Mean Corpuscular HGB CONC 31.9 g/dL (32.0-36.0); Mean Corpuscular Hemoglobin 30.8 pg (27.0-31.0); Mean Corpuscular Volume 96.4 fL (78.0-98.0); Mean Platelet Volume 8.3 fL (7.4-10.4); Platelet Count 232 thou/uL (130-400); RBC Distribution Width 12.2 % (11.5-14.5); Red Blood Cell (RBC) Count 3.45 mill/uL (4.70-6.10); White Blood Cell (WBC) Count 11.5 thou/uL (4.8-10.8)
[2019-05-22 06:46] LABS: Anion Gap 11 mmol/L (10-20); BUN (Urea Nitrogen) 26 mg/dL (8.4-25.7); Calc. Creatinine Clearance 16 mL/min (70-130); Calcium 8.9 mg/dL (7.8-10.44); Carbon Dioxide 18 mmol/L (23-31); Chloride 112 mmol/L (98-107); Estimated GFR-MDRD 34; Glucose 82 mg/dL (83-110); Potassium 4.7 mmol/L (3.5-5.1); Sodium 136 mmol/L (136-145)
[2019-05-22] MEDS: DorzolamidE/Timolol 2%/0.5% Ophth Soln 10 ml Bottle EA EYE SCH ×2 (07:57→20:20)
[2019-05-22] MEDS: Megestrol Acetate 800 MG/20 ML UDCUP PO SCH ×2 (07:57→17:06)
[2019-05-22] MEDS: Doxazosin Mesylate 4 MG TAB PO SCH ×2 (07:57→20:22)
[2019-05-22] MEDS: Atenolol 50 MG TAB PO SCH ×2 (07:57→20:20)
--- NOTE | 2019-05-22 11:25 | PDOC.HOSPP ---
- Subjective Encounter Date: 05/22/19 Encounter Time: 09:45 Subjective: Patient seen and examined. No new complaints. No overnight events - Objective Vital Signs & Weight: Vital Signs (12 hours) Temp Pulse Resp BP BP BP Pulse Ox 05/22/19 09:54 132/75 05/22/19 08:00 100 05/22/19 07:57 58 L 201/72 H 05/22/19 07:33 98.6 F 58 L 16 201/72 H 100 05/22/19 04:23 66 177/73 H 05/22/19 04:00 97.7 F 69 16 198/84 H 98 05/22/19 00:00 98.5 F 67 16 151/77 H 100 Weight Admit Weight 97 lb 1.6 oz Weight 97 lb 1.6 oz I&O: 05/21/19 05/22/19 05/23/19 06:59 06:59 06:59 Intake Total 1336 1938 Output Total 750 900 Balance 586 1038 Result Diagrams: 05/22/19 06:16 05/22/19 06:16 Hospitalist ROS - Review of Systems Eyes: denies: pain, vision change, conjunctivae inflammation, eyelid inflammation, redness, other ENT: denies: ear pain, ear discharge, nose pain, nose discharge, nose congestion , mouth pain, mouth swelling, throat pain, throat swelling, other Respiratory: denies: cough, dry, shortness of breath, hemoptysis, SOB with excertion, pleuritic pain, sputum, wheezing, other Cardiovascular: denies: chest pain, palpitations, orthopnea, paroxysmal noc. dyspnea, edema, light headedness, other Gastrointestinal: denies: nausea, vomiting, abdominal pain, diarrhea, constipation, melena, hematochezia, other Genitourinary: denies: dysuria, frequency, incontinence, hematuria, retention, other Musculoskeletal: denies: neck pain, shoulder pain, arm pain, back pain, hand pain, leg pain, foot pain, other Skin: denies: rash, lesions, bal, bruising, other - Medication Medications: Active Medications Generic Name Dose Route Start Last Admin Trade Name Freq PRN Reason Stop Dose Admin Acetaminophen 1,000 mg 05/16/19 19:51 05/21/19 17:28 Tylenol PO 1,000 mg Q6H PRN Administration Mild Pain (1-3) Atenolol 50 mg 05/17/19 09:00 05/22/19 07:57 Tenormin PO 50 mg BID RAMON Administration Dorzolamide/Timolol 1 drop 05/17/19 09:00 05/22/19 07:57 Cosopt 2-0.5% Ophth Soln EA EYE 1 drop BID RAMON Administration Doxazosin Mesylate 4 mg 05/17/19 09:00 05/22/19 07:57 Cardura PO 4 mg BID RAMON Administration Famotidine 20 mg 05/16/19 21:00 05/21/19 20:29 Pepcid PO 20 mg QPM RAMON Administration Sodium Chloride 1,000 mls @ 30 mls/hr 05/16/19 16:30 05/21/19 20:30 Normal Saline 0.9% IV 1,000 mls .Q24H RAMON Administration Ceftriaxone Sodium 2 gm/ 100 mls @ 200 mls/hr 05/16/19 20:00 05/21/19 20:29 Sodium Chloride IVPB 100 mls Q24HR RAMON Administration Latanoprost 1 drop 05/17/19 21:00 05/21/19 20:29 Xalatan 0.005% Ophth Soln EA EYE 1 drop HS RAMON Administration Megestrol Acetate 400 mg 05/17/19 08:00 05/22/19 07:57 Megace PO 400 mg BID-WM RAMON Administration Mirtazapine 15 mg 05/17/19 21:00 05/21/19 20:29 Remeron PO 15 mg HS RAMON Administration Sodium Chloride 10 ml 05/16/19 21:00 05/22/19 07:58 Flush - Normal Saline IVF Not Given Q12HR RAMON - Exam General Appearance: NAD, awake alert Eye: PERRL, anicteric sclera ENT: normocephalic atraumatic, no oropharyngeal lesions Neck: supple, symmetric, no JVD, no thyromegaly Heart: RRR, no murmur, no gallops, no rubs Respiratory: CTAB, no wheezes, no rales, no ronchi Gastrointestinal: soft, non-tender, non-distended, normal bowel sounds Extremities: no cyanosis, no clubbing, no edema Extremities - other findings: toe gangrene stable and better Skin: normal turgor, no lesions Neurological: no focal deficits Musculoskeletal: normal tone, normal strength Psychiatric: normal affect, normal behavior Hosp A/P (1) Lactic acidosis Code(s): E87.2 - ACIDOSIS Status: Resolved (2) Acute worsening of stage 3 chronic kidney disease Code(s): N18.3 - CHRONIC KIDNEY DISEASE, STAGE 3 (MODERATE) Status: Acute (3) Gangrene of toe of left foot Code(s): I96 - GANGRENE, NOT ELSEWHERE CLASSIFIED Status: Acute (4) PAD (peripheral artery disease) Code(s): I73.9 - PERIPHERAL VASCULAR DISEASE, UNSPECIFIED Status: Chronic (5) Protein-calorie malnutrition, severe Code(s): E43 - UNSPECIFIED SEVERE PROTEIN-CALORIE MALNUTRITION Status: Chronic (6) Tobacco abuse Code(s): Z72.0 - TOBACCO USE Status: Chronic (7) Hypertension Code(s): I10 - ESSENTIAL (PRIMARY) HYPERTENSION Status: Acute Qualifiers: Hypertension type: essential hypertension Qualified Code(s): I10 - Essential (primary) hypertension (8) Anemia, normocytic normochromic Code(s): D64.9 - ANEMIA, UNSPECIFIED Status: Chronic - Plan old records reviewed/req, plan discussed w/ family 05/17/19 continue empiric antibiotics as ordered for now he can not have CTA to evaluate his PAD due to BRITTNEY continue IVF nephrology following level of amputation is difficult to decide as unable to do angiography, high risk for non healing due to poor nutrition as well prognosis guarded discussed with family bedside will repeat lab tomorrow 05/18/19 continue iv antibiotic for now renal function is little better continue ivf pt is not a candidate for angiography will monitor counselled to avoid smoking nutritional support 05/19/19 continue current antibiotic start PT/OT discharge planning renal function fluctuating, likely chronic 05/20/19 continue current antibiotics discharge planning to snu medication reviewed as above symptomatic treatment nutritional support 05/21/19 I spoke with daughter, she does not want to take any risk with kidney, so we can not do any angiography or revascularization amputation of toe is also not good option as wound may not heal without vascularization possible autoamputation with time no active infection at this time family to decide about home vs snu on discharge, may be tomorrow high risk for readmission will repeat labs tomorrow 05/22/19 continue wound care, continue antibiotic, tomorrow will consider discharge to home/snu on oral augmentin
[2019-05-22] MEDS: Sodium Chloride 0.9% 1,000 ML IV SCH (17:07)
[2019-05-22] MEDS: Acetaminophen 500 MG TAB PO PRN (17:12)
--- NOTE | 2019-05-22 18:15 | PRG ---
DATE OF SERVICE: 05/22/2019 SUBJECTIVE: Patient was seen and examined at bedside and overnight events noted. Patient denies any shortness of breath or chest pain or palpitation. No history of nausea or vomiting or diarrhea or fever or chills or cramps. OBJECTIVE: GENERAL: This is a thin-built male, in no apparent distress. VITAL SIGNS: Temperature 98.2. Heart rate 69. Respiratory rate 16. Blood pressure 137/72. HEENT: Atraumatic, normocephalic. Oral mucosa is moist NECK: Supple. CARDIOVASCULAR: S1, S2 heard. Rate and rhythm regular. RESPIRATORY: Clear to auscultation. GASTROINTESTINAL: Abdomen is soft. MUSCULOSKELETAL: No tenderness. No edema. DERMATOLOGIC: No skin rash. NEUROLOGIC: Alert and awake and oriented X3. No focal neurologic deficits. Moving all the extremities. PSYCHIATRIC: Mood and affect normal. LABORATORY DATA: Potassium is 4.7, BUN is 26, and creatinine is 2.2. ASSESSMENT AND PLAN: 1. Acute kidney injury on chronic kidney stage 3. Renal function seems to be stable. 2. Acidosis. 3. Edema, controlled. 4. Hypertension. 5. Anemia of chronic disease. 6. Mild hypoalbuminemia. Avoid nephrotoxins and we will monitor renal function. Job ID: [id number]
[2019-05-22] MEDS: cefTRIAXone\\ROCEPHIN 2 GM in Sodium Chloride 0.9% 100 ML IVPB SCH (20:19)
[2019-05-22] MEDS: Latanoprost 0.005% Ophth Soln 2.5 ml Bottle EA EYE SCH (20:20)
[2019-05-22] MEDS: Mirtazapine 15 MG TAB PO SCH (20:20)
[2019-05-22] MEDS: Famotidine 20 MG TAB PO SCH (20:21)
[2019-05-23] MEDS: Sodium Chloride 0.9% 1,000 ML IV SCH (05:37)
[2019-05-23] MEDS: Acetaminophen 500 MG TAB PO PRN ×2 (08:00→15:46)
[2019-05-23] MEDS: Megestrol Acetate 800 MG/20 ML UDCUP PO SCH (08:00)
[2019-05-23] MEDS: Atenolol 50 MG TAB PO SCH (08:04)
[2019-05-23] MEDS: Doxazosin Mesylate 4 MG TAB PO SCH (08:04)
[2019-05-23] MEDS: DorzolamidE/Timolol 2%/0.5% Ophth Soln 10 ml Bottle EA EYE SCH (08:05)
[2019-05-23] MEDS: Amlodipine 5 MG TAB PO SCH ×2 (10:29→10:32)
--- NOTE | 2019-05-23 10:41 | PRG ---
DATE OF SERVICE: 05/23/2019 SUBJECTIVE: Patient was seen and examined at bedside and overnight events noted. Patient denies any shortness of breath or chest pain or palpitation. No history of nausea or vomiting or diarrhea or fever or chills or cramps. OBJECTIVE: GENERAL: This is a thin-built male, in no apparent distress. VITAL SIGNS: Temperature 97.9. Heart rate 72. Respiratory rate 18. Blood pressure 161/77. HEENT: Atraumatic, normocephalic. Oral mucosa is moist NECK: Supple. CARDIOVASCULAR: S1, S2 heard. Rate and rhythm regular. RESPIRATORY: Clear to auscultation. GASTROINTESTINAL: Abdomen is soft. MUSCULOSKELETAL: No tenderness. No edema. DERMATOLOGIC: No skin rash. NEUROLOGIC: Alert and awake and oriented X3. No focal neurologic deficits. Moving all the extremities. PSYCHIATRIC: Mood and affect normal. LABORATORY DATA: No labs done today. ASSESSMENT AND PLAN: 1. Acute kidney injury, seems to be stable. 2. Chronic kidney disease, stage 3. 3. Edema. 4. Acidosis. 5. Hypertension. 6. Anemia of chronic disease. We will monitor labs. Avoid nephrotoxins. Job ID: [id number]
--- NOTE | 2019-05-23 12:03 | PDOC.HOSPP ---
- Subjective Encounter Date: 05/23/19 Encounter Time: 10:30 Subjective: Patient seen and examined. No new complaints. No overnight events - Objective Vital Signs & Weight: Vital Signs (12 hours) Temp Pulse Resp BP BP Pulse Ox 05/23/19 11:37 98.9 F 70 14 136/58 L 100 05/23/19 10:32 74 196/78 H 05/23/19 08:04 74 196/78 H 05/23/19 08:00 95 Weight Admit Weight 97 lb 1.6 oz Weight 97 lb 1.6 oz I&O: 05/22/19 05/23/19 05/24/19 06:59 06:59 06:59 Intake Total 1938 1820 Output Total 900 600 Balance 1038 1220 Result Diagrams: 05/22/19 06:16 05/22/19 06:16 Hospitalist ROS - Review of Systems Constitutional: denies: fever, chills, sweats, weakness, malaise, other Eyes: denies: pain, vision change, conjunctivae inflammation, eyelid inflammation, redness, other ENT: denies: ear pain, ear discharge, nose pain, nose discharge, nose congestion , mouth pain, mouth swelling, throat pain, throat swelling, other Respiratory: denies: cough, dry, shortness of breath, hemoptysis, SOB with excertion, pleuritic pain, sputum, wheezing, other Cardiovascular: denies: chest pain, palpitations, orthopnea, paroxysmal noc. dyspnea, edema, light headedness, other Gastrointestinal: denies: nausea, vomiting, abdominal pain, diarrhea, constipation, melena, hematochezia, other Genitourinary: denies: dysuria, frequency, incontinence, hematuria, retention, other Musculoskeletal: denies: neck pain, shoulder pain, arm pain, back pain, hand pain, leg pain, foot pain, other Skin: denies: rash, lesions, bal, bruising, other - Medication Medications: Active Medications Generic Name Dose Route Start Last Admin Trade Name Freq PRN Reason Stop Dose Admin Acetaminophen 1,000 mg 05/16/19 19:51 05/23/19 08:00 Tylenol PO 1,000 mg Q6H PRN Administration Mild Pain (1-3) Atenolol 50 mg 05/17/19 09:00 05/23/19 08:04 Tenormin PO 50 mg BID RAMON Administration Dorzolamide/Timolol 1 drop 05/17/19 09:00 05/23/19 08:05 Cosopt 2-0.5% Ophth Soln EA EYE 1 drop BID RAMON Administration Doxazosin Mesylate 4 mg 05/17/19 09:00 05/23/19 08:04 Cardura PO 4 mg BID RAMON Administration Famotidine 20 mg 05/16/19 21:00 05/22/19 20:21 Pepcid PO 20 mg QPM RAMON Administration Ceftriaxone Sodium 2 gm/ 100 mls @ 200 mls/hr 05/16/19 20:00 05/22/19 20:19 Sodium Chloride IVPB 100 mls Q24HR RAMON Administration Latanoprost 1 drop 05/17/19 21:00 05/22/19 20:20 Xalatan 0.005% Ophth Soln EA EYE 1 drop HS RAMON Administration Megestrol Acetate 400 mg 05/17/19 08:00 05/23/19 08:00 Megace PO 400 mg BID-WM RAMON Administration Mirtazapine 15 mg 05/17/19 21:00 05/22/19 20:20 Remeron PO 15 mg HS RAMON Administration Sodium Chloride 10 ml 05/16/19 21:00 05/23/19 08:06 Flush - Normal Saline IVF Not Given Q12HR RAMON - Exam General Appearance: NAD, awake alert Eye: PERRL, anicteric sclera ENT: normocephalic atraumatic, no oropharyngeal lesions Neck: supple, symmetric, no JVD, no thyromegaly Heart: RRR, no murmur, no gallops, no rubs Respiratory: CTAB, no wheezes, no rales Gastrointestinal: soft, non-tender, non-distended, normal bowel sounds Extremities: no cyanosis, no clubbing Skin: normal turgor, no lesions Neurological: cranial nerve grossly intact, no focal deficits Musculoskeletal: normal tone, normal strength Psychiatric: normal affect, normal behavior Hosp A/P (1) Lactic acidosis Code(s): E87.2 - ACIDOSIS Status: Resolved (2) Acute worsening of stage 3 chronic kidney disease Code(s): N18.3 - CHRONIC KIDNEY DISEASE, STAGE 3 (MODERATE) Status: Acute (3) Gangrene of toe of left foot Code(s): I96 - GANGRENE, NOT ELSEWHERE CLASSIFIED Status: Acute (4) PAD (peripheral artery disease) Code(s): I73.9 - PERIPHERAL VASCULAR DISEASE, UNSPECIFIED Status: Chronic (5) Protein-calorie malnutrition, severe Code(s): E43 - UNSPECIFIED SEVERE PROTEIN-CALORIE MALNUTRITION Status: Chronic (6) Tobacco abuse Code(s): Z72.0 - TOBACCO USE Status: Chronic (7) Hypertension Code(s): I10 - ESSENTIAL (PRIMARY) HYPERTENSION Status: Acute Qualifiers: Hypertension type: essential hypertension Qualified Code(s): I10 - Essential (primary) hypertension (8) Anemia, normocytic normochromic Code(s): D64.9 - ANEMIA, UNSPECIFIED Status: Chronic - Plan old records reviewed/req, continue antibiotics 05/17/19 continue empiric antibiotics as ordered for now he can not have CTA to evaluate his PAD due to BRITTNEY continue IVF nephrology following level of amputation is difficult to decide as unable to do angiography, high risk for non healing due to poor nutrition as well prognosis guarded discussed with family bedside will repeat lab tomorrow 05/18/19 continue iv antibiotic for now renal function is little better continue ivf pt is not a candidate for angiography will monitor counselled to avoid smoking nutritional support 05/19/19 continue current antibiotic start PT/OT discharge planning renal function fluctuating, likely chronic 05/20/19 continue current antibiotics discharge planning to snu medication reviewed as above symptomatic treatment nutritional support 05/21/19 I spoke with daughter, she does not want to take any risk with kidney, so we can not do any angiography or revascularization amputation of toe is also not good option as wound may not heal without vascularization possible autoamputation with time no active infection at this time family to decide about home vs snu on discharge, may be tomorrow high risk for readmission will repeat labs tomorrow 05/22/19 continue wound care, continue antibiotic, tomorrow will consider discharge to home/snu on oral augmentin 05/23/19 dc to home with home health see discharge giselle
--- NOTE | 2019-05-23 12:47 | DIS ---
DATE OF ADMISSION: 05/16/2019 DATE OF DISCHARGE: 05/23/2019 DISCHARGE DISPOSITION: Home with home health. PRIMARY DISCHARGE DIAGNOSES: 1. Gangrenous toe on the left foot, cellulitis toe. 2. Acute on chronic kidney failure, baseline chronic kidney disease, stage 3. 3. Lactic acidosis, resolved. SECONDARY DISCHARGE DIAGNOSES: 1. Tobacco abuse disorder. 2. Severe protein-calorie malnutrition. 3. Peripheral arterial disease. 4. Normocytic normochromic anemia. 5. Hypertension. 6. Chronic kidney disease, stage 3. PRIMARY PROCEDURE/OPERATION: None. RADIOLOGICAL INVESTIGATION: Renal ultrasound unremarkable. Foot x-ray unremarkable. CT brain negative. SIGNIFICANT LABORATORY DATA: WBC 11.5, hemoglobin 10.6, and platelet 232. Sodium 136, creatinine 2.25, albumin 3.1, and calcium 8.9. DISCHARGE MEDICATIONS: 1. [place] 1 tablet q.4 hourly p.r.n. 2. Tenormin 50 mg b.i.d. 3. Dorzolamide/Timolol ophthalmic drops b.i.d. 4. Cardura 4 mg b.i.d. 5. Flonase nasal spray daily. 6. Xalatan eye drops at bedtime. 7. Claritin 10 mg daily. 8. Megace b.i.d. 9. Remeron 15 mg p.o. at bedtime. 10. Amlodipine 5 mg p.o. b.i.d. 11. Amoxicillin with clavulanic acid (Augmentin 500 mg) twice daily for 10 days. CONTRAINDICATION: None. CODE STATUS: Full code. INPATIENT BUILDING CONSTRUCTION SUPERINTENDENT: The patient will follow up with Dr. Roman Srinivasan as instructed. The patient will make appointment with primary care physician in 1 week. HOSPITAL COURSE: An 79-year-old male, who has severe protein-calorie malnutrition as well as underlying chronic renal insufficiency. He has heavy smoking history and he has underlying peripheral vascular disease. He was admitted for cellulitis and gangrene of left great toe. The patient was given IV fluid for his renal failure, but his renal function did not improve. Renal ultrasound was unremarkable and Nephrology was following. Regarding gangrene and cellulitis of toe, the patient was requiring revascularization procedure and diagnostic procedure for peripheral arterial disease, but family member were not interested in going for that procedure because they do not want to take any chance with his kidney. The patient's renal function is not allowing to do any angiography or any revascularization postprocedure. At this point while in hospital, we treated him with empiric antibiotic therapy. He has some improvement. He does not have any more infection. While in hospital, he had mechanical fall and that is why CT brain was done, which was unremarkable. The patient will continue above-mentioned medication and he will follow up with Dr. Owens as well as Dr. Fontana. Smoking cessation counseling, even nutritional support discussed. For his hypertension, we added amlodipine on his other medication. On discharge, we changed to Augmentin. While in hospital, he was given vancomycin and Zosyn. On discharge, we arranged Home Health. The patient is seen and examined at bedside today. Please see my progress note from today for further detail. Job ID: [id number]
[2019-05-23 15:38] VITALS: BP 156/71; TEMP 98.4
[2019-05-23] MEDS ORDERED: Amlodipine 5 MG TAB PO SCH (21:00)
== END 2019-05-23 16:25 | disposition home health service (06) | DRG 682 ==
LOC: ERS 11:17 → ERHOLD 13:44 → T4-B 20:14
PROVIDERS: ADMIT Family Medicine; ATTEND Family Medicine
DX: N17.0 Acute kidney failure with tubular necrosis (principal); E43 Unspecified severe protein-calorie malnutrition; I96 Gangrene, not elsewhere classified; E87.2 Acidosis; Z68.1 Body mass index [BMI] 19.9 or less, adult; I70.268 Atherosclerosis of native arteries of extremities with gangrene, other extremity; L03.032 Cellulitis of left toe; I12.9 Hypertensive chronic kidney disease with stage 1 through stage 4 chronic kidney disease, or unspecified chronic kidney disease; N18.3 Chronic kidney disease, stage 3 (moderate); F17.210 Nicotine dependence, cigarettes, uncomplicated; R62.7 Adult failure to thrive; J44.9 Chronic obstructive pulmonary disease, unspecified; G62.9 Polyneuropathy, unspecified; N40.0 Benign prostatic hyperplasia without lower urinary tract symptoms; F32.9 Major depressive disorder, single episode, unspecified; H40.9 Unspecified glaucoma; D63.1 Anemia in chronic kidney disease
CPT/HCPCS: 36415; 70450; 76770; 80048; 80053; 83605; 83735; 84100; 84550; 85025; 87040; 96360; J0696; J3370; J3490